=== PATIENT | female | born 1975 | race Caucasian/White ===

== ENCOUNTER 2018-11-10 08:51 | Outpatient (CLI) | payer BC ==
--- NOTE | 2018-11-10 10:26 | MMO ---
BILATERAL MAMMOGRAMS: DATE: 11/10/18 HISTORY: Screening mammography. FINDINGS: Baseline study. Heterogeneously dense fibroglandular tissue. No dominant mass or suspicious calcifications. The study was evaluated with the assistance of computer-aided detection. IMPRESSION: BIRADS 1: Negative Suggest routine follow-up. POS: [id number]
== END 2018-11-10 08:52 | disposition home or self-care (01) ==
LOC: SCSMAMMO 08:51
PROVIDERS: ATTEND Obstetrics & Gynecology
DX: Z12.31 Encounter for screening mammogram for malignant neoplasm of breast (principal)
CPT/HCPCS: 77067